=== PATIENT | male | born 1950 | race Caucasian/White ===

== ENCOUNTER 2017-07-27 10:03 | Emergency (ER) | payer MEDICARE ==
[~2017-07-27] VITALS: Ht 180.3 cm; Wt 76.4 kg
[~2017-07-27 10:03] MED LIST: LIALDA1.2 GM PO; TRAMADOL HCL50 MG PO
[2017-07-27] MEDS ORDERED: LIALDA1.2 GM PO (10:19)
[2017-07-27 11:09] LABS: HEMATOCRIT 45.5 % (39.0-50.0); HEMOGLOBIN 15.6 g/dl (14.0-18.0); IMMATURE GRANULOCYTES 0.4 % (0.0-1.0); MEAN CORPUSCULAR HGB 30.2 pG CALC (26.0-32.0); MEAN CORPUSCULAR HGB CONC 34.3 g/L CALC (32.0-36.0); NEUT# 5.9 thou/uL (1.82-7.42); RED BLOOD COUNT 5.17 mill/uL (4.70-6.10); RED CELL DISTRI WIDTH 12.7 % (11.5-15.5)
[2017-07-27 11:15] LABS: ALBUMIN 4.2 g/dL (3.2-5.0); ALKALINE PHOSPHATASE 112 u/l (38-126); ANION GAP 18 (6-22 (CALC)); BUN 13 mg/dL (8-23); BUN/CREATININE RATIO 14 (12-20 (CALC)); CALCIUM 9.9 mg/dL (8.4-10.2); CARBON DIOXIDE 24 mmol/l (22-30); CHLORIDE 100 mmol/l (95-108); CREATININE 0.9 mg/dL (0.7-1.3); GFR > 60 ML/MIN (>=60 (CALC)); GFR FOR AFR.AMER. > 60 ML/MIN (>=60 (CALC)); GLUCOSE 96 mg/dL (82-115); LIPASE 101 u/l (23-300); POTASSIUM 3.8 mmol/l (3.5-5.1); SGOT/AST 53 u/l (19-48); SGPT/ALT 112 u/l (11-66); SODIUM 139 mmol/l (137-146); TOTAL PROTEIN 7.3 g/dL (6.3-8.2)
[2017-07-27] MEDS ORDERED: METRONIDAZOL250 MG PO (13:09)
[2017-07-27] MEDS ORDERED: CIPROFLOXACN500 MG PO (13:09)
[2017-07-27] MEDS ORDERED: PREDNISONE20 MG PO (13:09)
[2017-07-27] MEDS ORDERED: LORTAB 5/3255 MG PO (13:10)
[2017-07-27 14:11] VITALS: BP 138/78
== END 2017-07-27 15:00 | disposition home or self-care (01) ==
LOC: ED 10:03
PROVIDERS: Family Medicine
DX: K57.32 Diverticulitis of large intestine without perforation or abscess without bleeding (principal); I10 Essential (primary) hypertension; K50.90 Crohn's disease, unspecified, without complications